=== PATIENT | female | born 1930 | race Caucasian/White ===

== ENCOUNTER 2017-02-25 10:10 | Emergency (ER) | payer MEDICARE, BC ==
[2017-02-25 10:21] VITALS: BP 139/83
--- NOTE | 2017-02-25 10:29 | UC ---
Ear Complaint HPI - HPI Summary HPI Summary: 86 YEAR OLD FEMALE PRESENT WITH COMPLAINS OF RIGHT EAR PAIN. ON A SIDE NOT SHE WILL HAVE HER EARS CLEANED BY ENT. - History of Current Complaint Chief Complaint: UCEar Stated Complaint: EAR PAIN Time Seen by Provider: 02/25/17 10:28 Hx Obtained From: Patient Hx Last Menstrual Period: n/a Onset/Duration: Sudden Onset Severity Initially: Moderate Severity Currently: Moderate Pain Scale Used: 0-10 Numeric - 5 - Allergies/Home Medications Allergies/Adverse Reactions: Allergies Allergy/AdvReac Type Severity Reaction Status Date / Time No Known Allergies Allergy Verified 02/25/17 10:21 Home Medications: Home Medications Valsartan TAB* [Diovan TAB*] 80 mg PO DAILY 02/25/17 [History Confirmed 02/25/17 ] PMH/Surg Hx/FS Hx/Imm Hx Previously Healthy: Yes - Surgical History Surgical History: Yes Surgery Procedure, Year, and Place: Hysterectomy, Tonsillectomy - Social History Alcohol Use: Rare Substance Use Type: None Smoking Status (MU): Never Smoked Tobacco - Immunization History Most Recent Influenza Vaccination: no Review of Systems Constitutional: Negative Skin: Negative Eyes: Negative ENT: Ear Ache Respiratory: Negative Cardiovascular: Negative Gastrointestinal: Negative Genitourinary: Negative Motor: Negative Neurovascular: Negative Musculoskeletal: Negative Neurological: Negative Psychological: Negative All Other Systems Reviewed And Are Negative: Yes Physical Exam Triage Information Reviewed: Yes Vital Signs: Initial Vital Signs Temp 36.9 C 02/25/17 10:16 Pulse 73 02/25/17 10:16 Resp 16 02/25/17 10:16 BP 139/83 02/25/17 10:16 Pulse Ox 98 02/25/17 10:16 Vital Signs Reviewed: Yes Eye Exam: Normal ENT: Positive: Other: - RIGHT EAR CERUMEN IMPACTION RIGHT EAR OTITS EXTERNA Dental Exam: Normal Neck exam: Normal Neck: Positive: 1 Respiratory Exam: Normal Cardiovascular Exam: Normal Abdominal Exam: Normal Musculoskeletal Exam: Normal Neurological Exam: Normal Psychological Exam: Normal Skin Exam: Normal Ear Complaint Course/Dx - Differential Dx/Diagnosis Provider Diagnoses: RIGHT EAR OTITIS EXTERNA. RIGHT EAR CERUMEN IMPACTION Discharge - Discharge Plan Condition: Stable Disposition: HOME Prescriptions: Neomyc/Polym/HC 1% OTIC SUSP* [Cortisporin Otic Susp 1%*] 4 drop LEFT EAR TID # 1 btl Patient Education Materials: Cerumen Impaction (ED) Referrals: Haley PERAZA,Geeta [Medical Doctor] -
== END 2017-02-25 11:16 | disposition home or self-care (01) ==
LOC: UCCORT 10:10
DX: H60.91 Unspecified otitis externa, right ear (principal); H61.21 Impacted cerumen, right ear
CPT/HCPCS: 99213; G0463